=== PATIENT | female | born 1980 | race Native Hawaiian/Other Pacific Islander ===

== ENCOUNTER 2017-01-20 09:22 | Emergency (ER) | payer OTHER ==
[~2017-01-20] VITALS: Ht 154.9 cm; Wt 93.0 kg
[2017-01-20 10:07] LABS: PLATELET COUNT 198 K/uL (152-353)
[2017-01-20 10:25] LABS: POTASSIUM 3.8 mmol/L (3.6-5.2); SODIUM 137 mmol/L (136-145)
[2017-01-20 10:46] LABS: PARTIAL THROMBOPLASTIN TIME 23.3 SECONDS (24.5-33.6)
[2017-01-20 11:35] VITALS: BP 147/68; TEMP 98
== END 2017-01-20 11:35 | disposition home or self-care (01) ==
LOC: ED 09:22
PROVIDERS: Emergency Medicine
DX: R07.89 Other chest pain (principal); K29.70 Gastritis, unspecified, without bleeding
CPT/HCPCS: 36415; 80053; 81025; 82550; 83880; 84443; 84484; 85027; 85610; 85730; 99284

== ENCOUNTER 2021-09-08 10:40 | Emergency (ER) | payer OTHER ==
[~2021-09-08] VITALS: Ht 152.4 cm; Wt 90.7 kg
[2021-09-08 10:49] VITALS: TEMP 98.5
[2021-09-08 11:22] VITALS: BP 123/72
== END 2021-09-08 11:22 | disposition home or self-care (01) ==
LOC: ED 10:40
DX: J06.9 Acute upper respiratory infection, unspecified (principal); U07.1 COVID-19
CPT/HCPCS: 81025; 87635; 99283; U0003